=== PATIENT | male | born 1980 | race Caucasian/White ===

== ENCOUNTER 2024-03-28 07:39 | Outpatient (OUT) | payer BC, SELFPAY ==
--- NOTE | 2024-03-28 07:53 | CT_ITS ---
The [address] [address] Patient Name: JAZMIN HAHN MRN: [id number] date: 1980 Sex: M Assigned Patient Location: LAB Current Patient Location: LAB Accession/Order Number: [id number] Exam Date: 03/28/2024 08:19 Report Date: 03/28/2024 09:09 At the request of: NOBLE XIONG Procedure: CT chest w con EXAMINATION: CT chest w con HISTORY: Lung Nodule, Pulmonary Sarcoidosis COMPARISON: 05/06/2016 TECHNIQUE: Multi-planar CT images were created with IV contrast. Axial, Coronal, and Sagittal images. Dose reduction techniques were achieved by using automated exposure control and/or adjustment of mA and/or kV according to patient size and/or use of iterative reconstruction technique. FINDINGS: LUNGS: Stable 8 mm solid nodule along the left major fissure axial image #50. No new significant pulmonary nodule mass or infiltrates PLEURA: No mass, effusion, or pneumothorax. VASCULATURE: Normal postcontrast opacification of the central pulmonary arterial tree BASILIO: Progression of bilateral hilar lymphadenopathy MEDIASTINUM: Progression of prevascular pretracheal and subcarinal lymphadenopathy with the largest lymph node subcarinal location measuring 2.2 x 1.8 cm CARDIAC: No enlargement or pericardial effusion Coronary arteries: Absent calcifications AORTA: No aneurysm or dissection. CHEST WALL: No mass or axillary adenopathy. BONES: No bone lesion or fracture. LIMITED ABDOMEN: No suspicious findings. Limited images of the upper abdomen. OTHER: Negative. CT/CT chest w con IMPRESSION: Stable 8 mm nodule left major fissure Progression of mediastinal and hilar lymphadenopathy, nonspecific, possibly representing progression of known sarcoidosis Electronically authenticated by: LORENZO BAR Date: 03/28/2024 09:09
[2024-03-28 08:01] LABS: Basophils Percent Auto 0.9 % (0.2-2.0); Eosinophils Absolute Auto 0.2 10^3/uL (0.0-0.7); Eosinophils Percent Auto 5.3 % (0.9-7.0); Hematocrit 45.6 % (42.0-54.0); Hemoglobin 16.1 g/dL (14.0-18.0); Immature Granulocytes Abs Auto 0.01 10^3/uL (0.00-0.03); Immature Granulocytes Pct Auto 0.2 % (0.0-0.5); Mean Corpuscular HGB Conc 35.3 g/dL (29.9-35.2); Mean Corpuscular Hemoglobin 30.6 pg (25.9-34.0); Mean Corpuscular Volume 86.5 fL (80.0-94.0); Monocytes Absolute Auto 0.5 10^3/uL (0.3-0.8); Neutrophils Absolute Auto 2.7 10^3/uL (1.4-6.5); Neutrophils Percent Auto 59.6 % (43.0-75.0); Platelet Count 198 10^3/uL (150-450); Red Blood Count 5.27 10^6/uL (4.70-6.10); Red Cell Distribution Width 12.3 % (11.0-15.0); White Blood Count 4.5 10^3/uL (4.0-11.0)
[2024-03-28 08:05] LABS: Erythrocyte Sedimentation Rate 4 mm/hr (<=15)
[2024-03-28 08:11] LABS: Alanine Aminotransferase 52 U/L (16-63); Albumin Level 3.7 g/dL (3.4-5.0); Alkaline Phosphatase 162 U/L (46-116); Aspartate Amino Transferase 25 U/L (15-37); BUN Creatinine Ratio 13.1; Bilirubin Total 0.6 mg/dL (0.2-1.0); Calcium 8.7 mg/dL (8.5-10.1); Carbon Dioxide 28.9 mmol/L (21.0-32.0); Chloride 105 mmol/L (98-107); Estimated GFR (African America >60 (>=60); Estimated GFR (Non-African Ame 60 (>=60); Globulin 3.7 g/dL; Glucose 116 mg/dL (74-106); Potassium 3.9 mmol/L (3.5-5.1); Sodium 143 mmol/L (136-145); Total Protein 7.4 g/dL (6.4-8.2)
[2024-03-28 08:47] LABS: C Reactive Protein <0.50 mg/dL (<=0.50)
[2024-03-29 09:12] LABS: Testosterone 424 ng/dL (264-916)
[2024-03-29 15:09] LABS: Angiotensin-Converting Enzyme 84 U/L (14-82)
== END 2024-03-28 07:40 | disposition home or self-care (01) ==
LOC: LAB 07:39
PROVIDERS: PCP Internal Medicine; Visit Provider Internal Medicine
DX: Z00.00 Encounter for general adult medical examination without abnormal findings (principal); R91.1 Solitary pulmonary nodule; D86.0 Sarcoidosis of lung
CPT/HCPCS: 36415; 71260; 80053; 82164; 84403; 84443; 85025; 85652; 86140; Q9967